=== PATIENT | male | born 1980 | race Caucasian/White ===

== ENCOUNTER 2024-09-28 11:26 | Outpatient (AMB) | payer BC, SELFPAY ==
--- NOTE | 2024-09-28 11:34 | A.OFFPC_ITS ---
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 by: Spouse Allergies midazolam Allergy (Mild, Verified 09/28/24 12:09) Agitated Medication List - Last Reconciled 09/28/24 by Sulma Sargent PA-C buprenorphine-naloxone 8-2 mg 0 film sublingual Tobacco use date assessed: 09/28/24 Dental Screening Dental Screen Date: 09/28/24 Did you have a dental visit in the last 12 months?: No Did you have a dental problem in the last 6 months where you did not have access to dental care?: No HPI Establish Care HPI Details The patient is a 44-year-old male presenting with the need to establish a new primary care provider and management of a right inguinal hernia. The patient has recently moved to a new area and previously received care for various conditions at [facility]. The patient has a history of left inguinal hernia repair and now presents with a right inguinal hernia. This condition was identified after the patient experienced a sharp pain while lifting an object at work. Upon evaluation at [facility], it was noted that the hernia requires surgical intervention. The patient continues to manually manage the hernia's protrusions. Additionally, the patient has a history of pancreatitis and substance use disorder. The substance use disorder involved heroin and cocaine, but the pat ient states they have been in remission for many years and are currently stable. Nicotine dependence is ongoing, but there is no other reported recreational drug use. There is no family history of significant health issues, such as colon, breast, or prostate cancer, and no known family history of diabetes. Discussion about initial colorectal cancer screening through [facility] [employer] was conducted, along with plans for comprehensive blood work to assess the patient's overall health status. 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 - Housing: Recently moved to a new area and currently resides in [place], [place]. - Substance use: History of heroin and c ocaine use, currently in remission. Continues to use nicotine. - Travel: Experiences challenges with lo ng-distance travel for addiction therapy appointments and seeks relocation of services closer to home. - Family status: Accompanied by a partne r referred to as ',' indicating long-term relationship. [facility] Medical History (Updated 09/28/24 @ 12:13 by Sulma Sargent PA-C) Colon cancer screening Overweight with body mass index (BMI) of 26 to 26.9 in adult History of pancreatitis Nicotine dependence Substance abuse in remission Right inguinal hernia Establishing care with new doctor, encounter for Family History Father Heart attack Mother Heart attack Social History Housing: House Alcohol intake: current Alcohol intake frequency: holidays/special occasions only Patient Tobacco Use Status: Current everyday Tobacco user Cigarette Packs Per Day: 1 Cigarettes Per Day: 20 service: No Current occupational status: unemployed Cognitive needs: No Hearing needs: No Vision needs: No Questionnaire PHQ-9 Over the last 2 weeks, how often have you been bothered by any of the following problems? 1. Little interest or pleasure in doing things: not at all 2. Feeling down, depressed, or hopeless: not at all 3. Trouble falling or staying asleep, or sleeping too much: not at all 4. Feeling tired or having little energy: not at all 5. Poor appetite or overeating: not at all 6. Feeling bad about yourself - or that you are a failure or have let yourself or your family down: not at all 7. Trouble concentrating on things, such as reading the newspaper or watching television: not at all 8. Moving or speaking so slowly that other people could have noticed. Or the opposite - being so fidgety or restless that you have been moving around a lot more than usual: not at all 9. Thoughts that you would be better off or of hurting yourself in some way: not at all Total score: 0 Depression Screening Interpretation: Negative Depression Screening Done: Yes 72653 - PHQ-9 Billing: Yes Source: Developed by Drs. Santana Perea, Safia Cruz, Sarmad Caro and colleagues, with an educational jeanmarie from [employer]. Thrive Questionnaire Date Thrive assessed: 09/28/24 I am a: Patient What is your living situation today?: I have a steady place to live Within the past 12 months, did the food you bought not last and you didn't have the money to get more?: Never true Within the past 12 months, did you worry whether your food would run out before you got money to buy more?: Never true Do you have trouble paying for medicines?: No Do you have trouble getting transportation to medical appointments?: No Do you have trouble paying your heating and electricity bill?: No Do you have trouble taking care of your child, family member or friend?: No Do you have trouble with day-to-day activities such as bathing, preparing meals, shopping, managing finances, etc.?: No Are you currently unemployed and looking for a job?: No Are you interested in more education?: No Please select the resources that you would like help with: None THRIVE Score: 0 AUDIT C Alcohol Use Questionnaire (AUDIT-C) 1. How often do you have a drink containing alcohol?: Monthly or less 2. How many drinks containing alcohol do you have on a typical day when you are drinking?: 1 or 2 3. How often do you have six or more drinks on one occasion?: Never Total Score: 1 Score Reviewed/Action Taken: No LISA-7 AMB Questionnaire LISA-7 Date LISA - 7 assessed: 09/28/24 Feeling nervous, anxious, or on edge: 0 = Not at all Not being able to stop or control worryin = Not at all Worrying too much about different things: 0 = Not at all Trouble relaxin = Not at all Being so restless that it is hard to sit still: 0 = Not at all Becoming easily annoyed or irritable: 0 = Not at all Feeling afraid as if something awful might happen: 0 = Not at all Total LISA-7 score (0-4 normal; 5-9 mild; 10-14 moderate; 15-21 severe): 0 Source: Developed by Drs. Santana Perea, Safia Cruz, Sarmad Caro and colleagues, with an educational jeanmarie from [employer]. LISA-7 Assessment Billing LISA-7 Assessment Tool: LISA-7 Assessment 00693 Review of Systems Const Details: - Gastrointestinal: Reports no unintentional weight gain or loss, and no black or bloody stools. - Cardiovascular: Denies chest pain or shortness of breath. - Musculoskeletal: Reports presence of right inguinal hernia, previously left inguinal hernia repair. - Neurological: Denies any recent falls. - Respiratory: Denies recent respiratory issues. - Endocrine: Denies history of diabetes. - General: Denies any new health issues other than those discussed. Physical exam (Primary Care) Vital Signs: Last Vital Signs Temp 98.6 F 09/28/24 11:35 Pulse 72 09/28/24 11:35 Resp 12 09/28/24 11:35 BP 119/74 09/28/24 11:35 Pulse Ox 98 09/28/24 11:35 Oxygen Delivery Method Room Air 09/28/24 11:35 Care Plan Goal for BP management: <140/90 at Goal BMI result Body Mass Index 26.5 BMI Assessment/Plan discussion: High BMI High, discussed plan: lifestyle, weight reduction, dietary, physical activity and alcohol moderation Tobacco/Smoking Status: Tobacco use Status Tobacco use date assessed 09/28/24 09/28/24 11:43 Patient Tobacco Use Status Current everyday Tobacco 09/28/24 11:43 PHQ-9: PHQ-9 Score PHQ-9: Total score 0 09/28/24 11:43 Depression Screening Interpretation: Negative Thrive Assessment: Date of Thrive Assessment Date Thrive assessed 09/28/24 09/28/24 11:43 Const Other: Appearance: Alert. Oriented X3. No acute distress. Head: Normal external exam. Normocephalic. Atraumatic. Eyes: Pupils are equal, round, and reactive to light. Extraocular movements intact. Conjunctiva and sclera normal. Eyelids normal. Ears: External auditory canal normal. Tympanic membranes normal. Right ear has a little more wax than the left; advised to rinse. Throat: Pharynx normal. Uvula midline. Moist mucous membranes. Neck: Normal inspection. Neck supple. Full range of motion. No adenopathy. Thyroid Normal. No meningeal signs. No neck mass noted. Cardiovascular: Normal heart rate and rhythm. Heart sound normal. No murmurs noted. Pulses normal throughout. Respiratory: No respiratory distress. Painless inspiration. Breath sounds normal. No wheezes/rales/rhonchi noted. Chest nontender. No accessory muscle usage noted or decreased air movement noted. Abdomen: Soft and nontender. No distention noted. No organomegaly noted. No visible injury noted. No belly pain when palpated. Patient reports right inguinal hernia. No signs of incarcerated hernia at this time. Back: No costovertebral angle tenderness. Full range of motion noted. Skin: Skin warm and dry. Normal skin color. Normal skin turgor. No rashes/lesions/lacerations noted. Extremities: No lower extremity edema. Extremities exhibit normal range of motion. Extremities nontender. Neuro: Oriented X 3. No motor deficit. No sensory deficit. Reflexes normal. Results Reviewed Results Reviewed: - Labs: Blood work for previous pancreatitis was performed in September or October of the previous year; specifics not detailed. - Screenings: Discussion regarding the initiation of Cologuard for colorectal cancer screening. Coding Level of Care Code New Pt Level 4 (36255) Complex EM visit Add On G2211 Diagnoses Establishing care with new doctor, encounter for Z76.89 Substance abuse in remission F19.11 Nicotine dependence F17.200 Right inguinal hernia K40.90 History of pancreatitis Z87.19 Overweight with body mass index (BMI) of 26 to 26.9 in adult E66.3; Z68.26 Colon cancer screening Z12.11 Additional Codes PHQ-9 - 22962 - PHQ-9 Billing: Yes ([id number]) LISA-7 Assessment Billing - LISA-7 Assessment Tool: LISA-7 Assessment 05456 ([id number]) Assessment & Plan Assessment & Plan (1) Establishing care with new doctor, encounter for: Code(s): Z76.89 - Persons encountering health services in other specified circumstances Category: Medical (2) Substance abuse in remission: Comment: 11 years from heroin, cocaine, pills Code(s): F19.11 - Other psychoactive substance abuse, in remission Category: Medical Plan: The patient is maintained on buprenorphine naloxone, with a focus on relocating treatment closer to his current residence to enhance access and compliance with therapy. Patient instructed to call the [facility] at [place] to establish care at a closer location. Condition is chronic and stable will continue to monitor. (3) Nicotine dependence: Code(s): F17.200 - Nicotine dependence, unspecified, uncomplicated Category: Medical Plan: Patient continues to use nicotine, with future discussions on cessation planned to support health maintenance. Condition is chronic and stable continue to monitor. (4) Right inguinal hernia: Code(s): K40.90 - Unilateral inguinal hernia, without obstruction or gangrene, not specified as recurrent Category: Medical Plan: The patient has a diagnosed right inguinal hernia requiring surgical intervention. The patient is scheduled for a surgical consult. Meanwhile, the patient should avoid heavy lifting and manage protrusion with manual reduction. Condition is chronic and stable will continue to monitor. (5) History of pancreatitis: Code(s): Z87.19 - Personal history of other diseases of the digestive system Category: Medical Plan: Pancreatitis was previously addressed, and follow-up blood work will assess pancreatic function as part of the general health evaluation. (6) Overweight with body mass index (BMI) of 26 to 26.9 in adult: Code(s): E66.3 - Overweight; Z68.26 - Body mass index [BMI] 26.0-26.9, adult Category: Medical Plan: Patient has improved diet and exercise regimen. Condition is chronic and stable continue to monitor. (7) Colon cancer screening: Code(s): Z12.11 - Encounter for screening for malignant neoplasm of colon Category: Medical Plan: Cologuard ordered for colon cancer screening. Patient educated about Cologuard. Plan Plan Patient was informed and verbally consented to the use of an ambient scribe for clinic note documentation during this visit. 1. Inguinal Hernia The patient has a diagnosed right inguinal hernia requiring surgical intervention. The patient is scheduled for a surgical consult. Meanwhile, the patient should avoid heavy lifting and manage protrusion with manual reduction. 2. History Of Pancreatitis Pancreatitis was previously addressed, and follow-up blood work will assess pancreatic function as part of the general health evaluation. 3. History Of Substance Use Disorder, In Remission The patient is maintained on buprenorphine naloxone, with a focus on relocating treatment closer to his current residence to enhance access and compliance with therapy. 4. Nicotine Dependence Patient continues to use nicotine, with future discussions on cessation planned to support health maintenance. In our visit today, we discussed the diagnosis and management of the patient's right inguinal hernia. I explained the necessity of surgical intervention for the hernia, detailing the risks of untreated hernia, and outlined the process of manual reduction as an interim measure. We arranged for the patient to consult with general surgery, with the understanding that a referral would facilitate this process. For his past pancreatitis, we discussed the importance of follow-up blood work, particularly lipase levels, to ensure ongoing pancreatic health. We addressed the patient's history of substance use disorder, confirming his status in remission and maintaining buprenorphine naloxone as therapy. The plan includes supporting the patient's request to transfer this care to a more conveniently located clinic. The risks and benefits of colorectal cancer screening with Cologuard were explained, emphasizing the non-invasive nature and immigration guard-based sample collection to ease compliance. We also reviewed his request for alternative addiction therapy location and will assist in transferring his care to a more convenient location to improve adherence. Orders: Orders Comprehensive [place]. Panel Fast Today Z00.00 - Encounter for general adult medical examination without abnormal findings Magnesium Today Z00.00 - Encounter for general adult medical examination without abnormal findings PSA,Total (Free>4and<10) Today Z00.00 - Encounter for general adult medical examination without abnormal findings XR chest 2V Today K40.90 - Unilateral inguinal hernia, without obstruction or gangrene, not specified as recurrent C Reactive Protein Today Z00.00 - Encounter for general adult medical examination without abnormal findings Complete Blood Count Auto Diff Today Z00.00 - Encounter for general adult m edical examination without abnormal findings Hemoglobin A1c Today Z00.00 - Encounter for general adult medical examination without abnormal findings Lipid Panel Today Z00.00 - Encounter for general adult medical examination without abnormal findings Liver Panel Today Z00.00 - Encounter for general adult medical examination without abnormal findings TSH reflex Free T4 Today Z00.00 - Encounter for general adult medical examination without abnormal findings Vitamin D 25-OH Total Today Z00.00 - Encounter for general adult medical examination without abnormal findings Vitamin B12 and Folate Today Z00.00 - Encounter for general adult medical examination without abnormal findings ECG 12 lead EKG Today K40.90 - Unilateral inguinal hernia, without obstruction or gangrene, not specified as recurrent Lipase Today Z87.19 - Personal history of other diseases of the digestive system Referrals Cologuard Test Z12.11 - Encounter for screening for malignant neoplasm of colon, Z12.12 - Encounter for screening for malignant neoplasm of rectum General Surgery Referral K40.90 - Unilateral inguinal hernia, without obstruction or gangrene, not specified as recurrent Patient Instructions: - Avoid heavy lifting and strain to prevent hernia complications. - Contact your healthcare provider immediately if hernia protrusion becomes irreducible, as urgent care might be needed. - Attend scheduled surgical consultation and consider earlier appointments if possible. - Complete blood tests as ordered to monitor previous pancreatitis and overall health status. - Utilize the Cologuard kit as instructed for colorectal cancer screening. - Contact addiction therapy services to establish care closer to your residence. - Avoid the use of cotton swabs for ear cleaning; use peroxide occasionally if needed. - Follow fasting instructions for blood work, ensuring nothing to eat or drink for 10 to 12 hours prior. - Maintain these instructions and report any new or worsening symptoms promptly. - A follow-up appointment in three months is advised to reassess and continue management, which you should schedule with our office.
[2024-09-28 11:35] VITALS: BP 119/74; PULSE 72; RESP 12; TEMP 37; O2SAT 98; BMI 26.5
== END 2024-09-28 12:10 | disposition home or self-care (01) ==
LOC: HO.HMCSH 11:26
PROVIDERS: PCP Internal Medicine; Visit Provider Physician Assistant Medical
DX: Z76.89 Persons encountering health services in other specified circumstances (principal); F19.11 Other psychoactive substance abuse, in remission; F17.200 Nicotine dependence, unspecified, uncomplicated; K40.90 Unilateral inguinal hernia, without obstruction or gangrene, not specified as recurrent; Z87.19 Personal history of other diseases of the digestive system; E66.3 Overweight; Z68.26 Body mass index [BMI] 26.0-26.9, adult; Z12.11 Encounter for screening for malignant neoplasm of colon

== ENCOUNTER → 2024-09-28 11:26 | Outpatient (BNVA) | payer BC, SELFPAY | PROVIDERS: PCP Internal Medicine; Visit Provider Physician Assistant Medical | DX: F19.11 Other psychoactive substance abuse, in remission (principal); K40.90 Unilateral inguinal hernia, without obstruction or gangrene, not specified as recurrent; E66.3 Overweight; Z68.26 Body mass index [BMI] 26.0-26.9, adult; Z78.9 Other specified health status; Z87.19 Personal history of other diseases of the digestive system; F17.200 Nicotine dependence, unspecified, uncomplicated; Z71.3 Dietary counseling and surveillance; Z71.6 Tobacco abuse counseling | CPT/HCPCS: 96127 ==

== ENCOUNTER 2024-10-25 13:06 | Outpatient (AMB) | payer BC, SELFPAY ==
--- NOTE | 2024-10-25 13:57 | A.OFFVISCC_ITS ---
Vital Signs 10/25/24 13:58 BP 140/76 H Blood Pressure Location Lt brachial Position Sitting Pulse 77 Pulse Source Pulse Oximeter Pulse Oximetry (%) 99 Oxygen Delivery Method Room Air Intake Visit Reasons: MAT Intake Allergies midazolam Allergy (Mild, Verified 09/28/24 12:09) Agitated Medication List - Last Reconciled 10/25/24 by ROB ArguetaC buprenorphine-naloxone 8-2 mg 0 film sublingual buprenorphine-naloxone 8-2 mg 1 film sublingual BID HPI Comments Details: The patient is a 44-year-old male recently moved to the area and presenting for follow-up in his ongoing management of opioid use disorder. He reports being clean and sober for 10 years, maintaining adherence to Suboxone 8 mg twice daily with no noted complications or ineffectiveness. Alcohol use is acknowledged as occasional, defined by the patient as a few times a week specifically consuming just beer with an explicit disclaimer of no hard liquor. Nicotine dependence is significant, with reported smoking of about a pack a day, and while the patient expresses no current interest in cessation, he acknowledges future consideration. The conversation highlighted familial and social dynamics, particularly with reference to his son in relation to smoking cessation. The patient denies any present or previous psychiatric diagnoses outside of substance use but confirms stability with no explicit mood or anxiety complaints. He acknowledges an allergy to midazolam (Versed) but denies current or past adverse mental health impacts linked to stressors or usage. Review of Systems Const All systems reviewed & are unremarkable except as noted in HPI and below Psych Details: - Psychiatric: Denies any current mental health concerns. - Substance Use: Reports occasional alcohol use (beer, a few times a week), reports smoking approximately one pack of cigarettes daily. The patient denies suicidal ideation, homicidal ideation, self-injury, or experiences of domestic violence during this visit. Risk assessment for these conditions reveals no immediate safety concerns. Reports as per HPI Physical Exam Vital Signs: Last Vital Signs Pulse 77 10/25/24 13:58 BP 140/76 H 10/25/24 13:58 Pulse Ox 99 10/25/24 13:58 Oxygen Delivery Method Room Air 10/25/24 13:58 Const General: cooperative Nutritional Appearance: average body habitus Orientation/consciousness: patient oriented x3 Limitations: no limitations HEENT Head: Yes normal to inspection Eyes General: appearance normal, both eyes and all related structures Periorbital: periorbital findings normal Eyelids: Yes eyelids normal Conjunctivae: conjunctivae normal Sclerae: sclerae normal Neck Neck: Yes normal visual inspection Resp Effort & Inspection: normal respiratory effort Skin General skin exam: no rashes or lesions noted Neuro General: patient oriented x3 Gait exam (Neuro): Normal gait present Extrem General: Yes normal to inspection Psych Appearance: well kempt Mental Status: mental status grossly normal Speech and movement: Normal speech and movement present Affect: normal affect Attitude: cooperative Thought process: Normal thought process present Thought content: Normal thought content present Insight: Good insight present (Psych) Judgement: Good judgement present (Psych) Results AMB 14 Panel Urine Drug Screen Urine Marijuana (THC) Negative Last Edit by Madison Mcmillan RN on 10/25/24 14: 21 Urine Cocaine Negative Last Edit by Madison Mcmillan RN on 10/25/24 14:21 Urine Morphine Negative Last Edit by Madison Mcmillan RN on 10/25/24 14:21 Urine Methamphetamine Negative Last Edit by Madison Mcmillan RN on 10/25/24 14: 21 Urine Amphetamine Negative Last Edit by Madison Mcmillan RN on 10/25/24 14:21 Urine Benzodiazepine Negative Last Edit by Madison Mcmillan RN on 10/25/24 14:2 1 Urine Barbiturates Negative Last Edit by Madison Mcmillan RN on 10/25/24 14:21 Urine Methadone Negative Last Edit by Madison Mcmillan RN on 10/25/24 14:21 Urine Buprenorphine Positive Last Edit by Madison Mcmillan RN on 10/25/24 14:21 Urine Tricyclic Antidepressant Negative Last Edit by Madison Mcmillan RN on 10/25/24 14:21 Urine MDMA Negative Last Edit by Madison Mcmillan RN on 10/25/24 14:21 Urine Oxycodone Negative Last Edit by Madison Mcmillan RN on 10/25/24 14:21 Urine Phencyclidine Negative Last Edit by Madison Mcmillan RN on 10/25/24 14:21 Urine Propoxyphene Negative Last Edit by Madison Mcmillan RN on 10/25/24 14:21 [facility] Medical History (Updated 10/25/24 @ 14:39 by YASIR Argueta) Colon cancer screening Overweight with body mass index (BMI) of 26 to 26.9 in adult History of pancreatitis Nicotine dependence Substance abuse in remission Right inguinal hernia Establishing care with new doctor, encounter for Family History Father Heart attack Mother Heart attack Social History Housing: House Alcohol intake: current Alcohol intake frequency: holidays/special occasions only Patient Tobacco Use Status: Current everyday Tobacco user Cigarette Packs Per Day: 1 Cigarettes Per Day: 20 service: No Current occupational status: unemployed Cognitive needs: No Hearing needs: No Vision needs: No Assessment & Plan Assessment & Plan (1) Substance abuse in remission: Comment: 11 years from heroin, cocaine, pills Code(s): F19.11 - Other psychoactive substance abuse, in remission Category: Medical (2) Nicotine dependence: Code(s): F17.200 - Nicotine dependence, unspecified, uncomplicated Category: Medical Qualifiers: Nicotine product type: cigarettes Qualified Code(s): F17.210 - Nicotine dependence, cigarettes, uncomplicated Plan Encourage moderation in alcohol consumption, with current levels deemed as manageable and maintained with no alteration despite recent consumption reports. Document and acknowledge nicotine use at a pack per day; suggest initiation of gradual cigarettes reduction as a target for future cease over recorded visits. Continue buprenorphine-naloxone 8-2 mg b.i.d. as current therapy reflects success with planned refills for the next two weeks. Regular follow-ups set to ensure ongoing management efficacy. Orders: Orders AMB 14 Panel Urine Drug Screen Today F19.11 - Other psychoactive substance abuse, in remission Medications: New buprenorphine-naloxone 8-2 mg 1 film sublingual twice per day. 1 film sublingual BID 14 ea 0RF Patient Instructions: - Continue taking buprenorphine-naloxone 8-2 mg twice daily as prescribed. - Monitor alcohol intake for moderation; report any increase in use at follow- up. - Consider reducing cigarette consumption gradually; discuss smoking cessation at future visits. - Follow up in 2 weeks for reassessment and continuation of treatment. - Report any new medication allergies or adverse reactions promptly. Scribe Plan - Not visible on output: Patient was informed and verbally consented to the use of an ambient scribe for clinical note documentation during this visit. MAT Intake Nursing Intake Reason for visit: MAT intake Transfer of Care Are you currently using?: No When was your last use?: July 2014 What is your source of income?: currently unemployed What is your current relationship status?: engaged Current PCP: Sluma Sargent PA-C Date of last visit: 09/28/2024 Referral Source: PCP Details: Transfer from [facility] Substance Abuse History Substance Abuse History (includes route, frequency and quantity): Heroin, Fentanyl, Buprenorphine/naloxone, Oxycodone product, Cocaine, Other opioids, Alcohol (Current use- a couple of beers a couple of times per week), Amphetamines, Marijuana, Tobacco (Currently 1PPD smoker-risk reduction education provided by provider) and Other Age of first use: 10-13 Details: Alcohol and tobacco currently used. Other substances listed are more than 10 years ago Social History Domestic Violence concerns: no Children: 1 Do you have a support system?: yes, family Current mode of transportation?: vehicle Where are you currently residing?: House- [address] [place] Drug Use Have you ever shared needles?: No Have you ever belonged to a needle exchange program?: No Do you buy needles at a pharmacy?: No Have you ever overdosed?: No Number of lifetime overdoses: 0 Have you ever been hospitalized for an overdose?: No Was Naloxone administered?: Not applicable Recovery History Have you had any periods of recovery?: Yes What is your longest time in recovery?: 10 years current recovery time When was the last time you were in recovery?: current Have you ever had inpatient treatment for your substance abuse disorder?: Yes Have you been in an inpatient Rehab/[place] house?: Yes Have you been in an outpatient Methadone Maintenance program?: No Have you been in an outpatient Suboxone Maintenance program?: Yes Have you been in an AA/NA support program?: Yes Have you had a Recovery Support Human Resources Trainee?: No Have you had Peer Support?: No Details: Utilized NA/AA at times in past, not current. 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 If so, who?: no BH diagnosis: none History of other addictive behavior: none History of inpatient psychiatric hospitalization? If so, how many? Most Recent? Where?: no History of self harming thoughts?: No History of homicidal or suicidal intentions?: No Medical Conditions Endocarditis?: No Skin Infection: No Seizure related to withdrawal or overdose: No Head or brain injury: No Hepatitis A (if yes, have you been treated?): No Hepatitis B (if yes, have you been treated?): No Hepatitis C (if yes, have you been treated?): No HIV (if yes, have you been treated?): No (Has been tested in the past for Hepatitis and HIV- negative) TB (if yes, have you been treated?): No Other: Yes (Surgical history of left inguinal hernia repair. Awaiting surgery for current right inguinal hernia) Do you have any chronic pain conditions?: No Legal History History of incarceration: Yes Currently on parole or probation: No Court mandated programs: No Pending court cases: Yes DCF involvement: No
[2024-10-25 13:58] VITALS: BP 140/76; PULSE 77; O2SAT 99
== END 2024-10-25 14:06 | disposition home or self-care (01) ==
LOC: HO.HCC 13:06
PROVIDERS: PCP Physician Assistant Medical; Visit Provider Clinical Nurse Specialist Psychiatric/Mental Health
DX: F19.11 Other psychoactive substance abuse, in remission (principal); F17.210 Nicotine dependence, cigarettes, uncomplicated
CPT/HCPCS: 99203

== ENCOUNTER → 2024-10-25 13:06 | Outpatient (BNVA) | payer BC, SELFPAY | PROVIDERS: PCP Physician Assistant Medical; Visit Provider Clinical Nurse Specialist Psychiatric/Mental Health | DX: F19.11 Other psychoactive substance abuse, in remission (principal) | CPT/HCPCS: 80307 ==

== ENCOUNTER 2024-11-07 13:21 | Outpatient (AMB) | payer BC, SELFPAY ==
--- NOTE | 2024-11-07 13:25 | A.OFFVIS_ITS ---
Vital Signs 11/07/24 13:26 Weight 157 lb BP 120/80 Pulse 74 Pulse Oximetry (%) 96 Intake Visit Reasons: MAT Allergies midazolam Allergy (Mild, Verified 11/07/24 13:27) Agitated Medication List - Last Reconciled 11/07/24 by Lola Wilkerson NP-C buprenorphine-naloxone 8-2 mg 1 film sublingual BID HPI Comments Details: The patient is a 44-year-old male who presents for a follow-up visit for substance use disorder, reports doing well and stable on buprenorphine-naloxone 8-2 mg, twice per day. Denies opiate use including other substances, reports drinking 1-2 beers on occasion and continues with smoking cigarettes, although notes decreasing frequency. [facility] Medical History Colon cancer screening Overweight with body mass index (BMI) of 26 to 26.9 in adult History of pancreatitis Nicotine dependence Substance abuse in remission Right inguinal hernia Establishing care with new doctor, encounter for Family History Father Heart attack Mother Heart attack Social History Housing: House Alcohol intake: current Alcohol intake frequency: holidays/special occasions only Patient Tobacco Use Status: Current everyday Tobacco user Cigarette Packs Per Day: 1 Cigarettes Per Day: 20 service: No Current occupational status: unemployed Cognitive needs: No Hearing needs: No Vision needs: No Review of Systems Const All systems reviewed & are unremarkable except as noted in HPI and below Physical Exam Vital Signs: Last Vital Signs Pulse 74 11/07/24 13:26 BP 120/80 11/07/24 13:26 Pulse Ox 96 11/07/24 13:26 Const General: cooperative Psych Appearance: well kempt Mental Status: mental status grossly normal Speech and movement: Normal speech and movement present Affect: normal affect Attitude: cooperative Thought process: Normal thought process present Thought content: Normal thought content present Insight: Good insight present (Psych) Judgement: Good judgement present (Psych) Assessment & Plan Assessment & Plan (1) Substance abuse in remission: Comment: 11 years from heroin, cocaine, pills Code(s): F19.11 - Other psychoactive substance abuse, in remission Category: Medical Plan The plan of care is continue with buprenorphine-naloxone 8-2 mg, twice per day. Patient is to continue working on decreasing frequency of cigarette use. Medications: Changed From buprenorphine-naloxone 8-2 mg 1 film sublingual twice per day. 1 film sublingual BID 14 ea 0RF To buprenorphine-naloxone 8-2 mg 1 film sublingual twice per day. 1 film sublingual BID 60 ea 0RF 30 days Patient Instructions: - Continue with buprenorphine-naloxone 8-2 mg, twice per day. - Continue working on decreasing frequency of cigarette use. - Follow up in one month, or sooner, if needed. - Call with questions, concerns, or to report side effects. - The patient verbalized understanding and agreed with plan of care. Coding Level of Care Code Est Pt Level 3 (03515) Diagnoses Substance abuse in remission F19.11
[2024-11-07 13:26] VITALS: BP 120/80; PULSE 74; O2SAT 96
== END 2024-11-07 13:34 | disposition home or self-care (01) ==
LOC: HO.HCC 13:21
PROVIDERS: PCP Physician Assistant Medical; Visit Provider Clinical Nurse Specialist Psychiatric/Mental Health
DX: F19.11 Other psychoactive substance abuse, in remission (principal)
CPT/HCPCS: 99213

== ENCOUNTER 2024-11-14 09:22 | Outpatient (AMB) | payer BC, SELFPAY ==
--- NOTE | 2024-11-14 09:23 | MHC.OFFVIS ---
Vital Signs 11/14/24 09:30 Height 5 ft 4 in Weight 152 lb BMI 26.1 BP 127/86 Blood Pressure Location Rt brachial Position Sitting Pulse 75 Intake Visit Reasons: Hernia Intake Note: Patient referred by [facility] for evaluation and treatment of Rt inguinal hernia. Present since August 2024. Patient c/o: right groin pain that spreads to testicle. 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 He has noticed this mass since Aug, 2024. He says that this does not reduce. He says that he has discomfort area. He says he has been unable to work because of this. He has a history of substance abuse which is in remission and he is on buprenorphine. He says that he has been sober for more than 10 years with regards to substance abuse. 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 [facility] Medical History (Updated 11/14/24 @ 16:27 by Aydin Jean MD) Irreducible right inguinal hernia Colon cancer screening Overweight with body mass index (BMI) of 26 to 26.9 in adult History of pancreatitis Nicotine dependence Substance abuse in remission Right inguinal hernia Establishing care with new doctor, encounter for Surgical History (Updated 11/14/24 @ 09:29 by YOUSIF Asencio) Hx of left inguinal hernia repair Family History Father Heart attack Mother Heart attack Social History Housing: House Alcohol intake: current Alcohol intake frequency: holidays/special occasions only Patient Tobacco Use Status: Current everyday Tobacco user Cigarette Packs Per Day: 1 Cigarettes Per Day: 20 service: No Current occupational status: unemployed Cognitive needs: No Hearing needs: No Vision needs: No Review of Systems Const Denies chills and Denies fever(s) Card Denies chest pain, Denies dyspnea and Denies dyspnea on exertion Resp Denies cough, Denies dyspnea and Denies dyspnea on exertion GI Denies hematochezia and Denies change in bowel habits Denies hematuria and Denies difficulty urinating Musc Denies back pain and Denies limited range of motion Neuro Denies focal weakness and Denies convulsions Psych Denies depression and Denies mood swings Physical Exam Vital Signs: Last Vital Signs Pulse 75 11/14/24 09:30 BP 127/86 11/14/24 09:30 BMI result Body Mass Index 26.1 Const General: comfortable and no acute distress Orientation/consciousness: patient oriented x3 Neck Neck: Yes no lymphadenopathy Resp Auscultation: clear to auscultation bilaterally Cardio Rhythm: regular rhythm GI Other: Large right inguinal hernia, not reducible, mildly tender Palpation (GI): Soft to palpation, nontender and no guarding Neuro General: patient oriented x3 Assessment & Plan Assessment & Plan (1) Irreducible right inguinal hernia: Code(s): K40.30 - Unilateral inguinal hernia, with obstruction, without gangrene, not specified as recurrent Category: Medical Plan He has this chronically incarcerated right inguinal hernia discomfort. I explained to him the technique of repair of the right hernia with mesh. I reviewed the risks including but not limited to bleeding, infections, injury to other organs, recurrence, postop pain, as well as the benefits and alternatives. He understands what to expect postoperatively He is on buprenorphine so he understands as well that postop pain control may be challenging for him. Coding Level of Care Code New Pt Level 3 (95526) Diagnoses Irreducible right inguinal hernia K40.30
[2024-11-14 09:30] VITALS: BP 127/86; PULSE 75; BMI 26.1
== END 2024-11-14 09:48 | disposition home or self-care (01) ==
LOC: HO.HGS 09:22
PROVIDERS: Visit Provider Surgery
DX: K40.30 Unilateral inguinal hernia, with obstruction, without gangrene, not specified as recurrent (principal)
CPT/HCPCS: 99203

== ENCOUNTER 2024-11-26 12:10 | Outpatient (REF) | payer BC, SELFPAY ==
[2024-11-26 13:36] LABS: MANUAL DIFF FLAG NO
[2024-11-26 13:45] LABS: Hematocrit 39.7 % (42.0-52.0); Hemoglobin 14.0 g/dl (14.0-18.0); Imm Gran Abs Auto 0.03 X10*3/uL (0.00-0.03); Imm Gran Pct Auto 0.4 % (0.0-0.4); Lymphocytes Absolute Auto 3.1 X10*3/uL (1.2-4.9); Mean Corpuscular HGB Conc 35.3 g/dl (31.0-36.0); Mean Corpuscular Hemoglobin 31.6 pg (27.0-33.0); Mean Corpuscular Volume 89.6 fL (80.0-98.0); NRBC Abs Auto 0.000 X10*3/uL (0.0-0.012); NRBC Pct Auto 0.0 /100WBC (0.0-0.2); Platelet Count 293 X10*3/uL (160-400); Red Blood Count 4.43 X10*6/uL (4.60-5.80); White Blood Count 7.3 X10*3/uL (4.8-10.8)
[2024-11-26 14:25] LABS: Hemoglobin A1C 121.0840 umol/L; Total Hemoglobin (HGBA1C) 3805.9051 umol/L
[2024-11-26 14:39] LABS: PSA,Total (Free>4and<10) 0.59 ng/mL (0.00-4.00)
[2024-11-26 14:43] LABS: Alanine Aminotransferase 87 U/L (0-40); Albumin Level 4.0 g/dL (3.5-5.0); Alkaline Phosphatase 183 U/L (39-117); Anion Gap 16 (12-20); Aspartate Amino Transferase 96 U/L (5-37); Blood Urea Nitrogen 9 mg/dL (9-16); Calcium 9.0 mg/dL (8.4-10.2); Carbon Dioxide 23 mmol/L (22-29); Chloride 102 mmol/L (96-108); Cholesterol 339 mg/dL (<200); Estimated Glomerular Filt Rate > 60; HDL Cholesterol 26 mg/dL (>40); Lipase 18 U/L (8-78); Magnesium 2.2 mg/dL (1.6-2.6); Potassium 3.8 mmol/L (3.3-5.1); Sodium 137 mmol/L (135-145); Total Protein 7.4 g/dL (6.5-8.0)
[2024-11-26 14:55] LABS: Folate 12.2 ng/mL (> or = 4.0); Vitamin B12 689 pg/mL (200-900)
[2024-11-26 14:56] LABS: Triglycerides 1661 mg/dL (<150)
== END 2024-11-26 12:11 | disposition home or self-care (01) ==
LOC: HO.HMGCLDS 12:10
PROVIDERS: PCP Physician Assistant Medical; Visit Provider Physician Assistant Medical
DX: Z00.00 Encounter for general adult medical examination without abnormal findings (principal); Z12.5 Encounter for screening for malignant neoplasm of prostate; Z87.19 Personal history of other diseases of the digestive system; Z13.29 Encounter for screening for other suspected endocrine disorder; Z13.6 Encounter for screening for cardiovascular disorders; Z13.1 Encounter for screening for diabetes mellitus
CPT/HCPCS: 36415; 80053; 80061; 80076; 82248; 82306; 82607; 82746; 83036; 83690; 83735; 84153; 84443; 85025; 86140

== ENCOUNTER 2024-12-10 15:10 | Outpatient (AMB) | payer BC, SELFPAY ==
[2024-12-10 15:17] VITALS: BP 110/68; PULSE 80; O2SAT 98; BMI 27.1
--- NOTE | 2024-12-10 15:17 | MHC.OFFVIS ---
Vital Signs 12/10/24 15:17 Height 5 ft 4 in Weight 158 lb BMI 27.1 BP 110/68 Pulse 80 Pulse Oximetry (%) 98 Intake Visit Reasons: MAT Allergies midazolam Allergy (Mild, Verified 12/10/24 15:18) Agitated HPI HPI MAT: Details: He feels well on current dosing [facility] Medical History (Updated 12/10/24 @ 16:47 by Fozia Snyder MD) Opioid use disorder Anemia Elevated alkaline phosphatase level Elevated ALT measurement Elevated AST (SGOT) Total bilirubin, elevated Low HDL (under 40) Pure hypercholesterolemia, unspecified Hypertriglyceridemia Irreducible right inguinal hernia Colon cancer screening Overweight with body mass index (BMI) of 26 to 26.9 in adult History of pancreatitis Nicotine dependence Substance abuse in remission Right inguinal hernia Establishing care with new doctor, encounter for Surgical History Hx of left inguinal hernia repair Family History Father Heart attack Mother Heart attack Social History Housing: House Alcohol intake: current Alcohol intake frequency: holidays/special occasions only Patient Tobacco Use Status: Current everyday Tobacco user Cigarette Packs Per Day: 1 Cigarettes Per Day: 20 service: No Current occupational status: unemployed Cognitive needs: No Hearing needs: No Vision needs: No Review of Systems Const All systems reviewed & are unremarkable except as noted in HPI and below Physical Exam Vital Signs: Last Vital Signs Pulse 80 12/10/24 15:17 BP 110/68 12/10/24 15:17 Pulse Ox 98 12/10/24 15:17 BMI result Body Mass Index 27.1 Const General: cooperative Assessment & Plan Assessment & Plan (1) Opioid use disorder: Code(s): F11.90 - Opioid use, unspecified, uncomplicated Category: Medical Plan Continue current medication See as scheduled. Medications: New buprenorphine-naloxone 8-2 mg (Suboxone) 1 film sublingual BID 60 ea 0RF 30 days Coding Level of Care Code Est Pt Level 3 (66278) Diagnoses Opioid use disorder F11.90
== END 2024-12-10 15:34 | disposition home or self-care (01) ==
LOC: HO.HCC 15:11
PROVIDERS: PCP Physician Assistant Medical; Visit Provider Internal Medicine
DX: F11.90 Opioid use, unspecified, uncomplicated (principal)
CPT/HCPCS: 99213

== ENCOUNTER 2024-12-25 10:57 | Day surgery (SDC) | payer OTHER, SELFPAY ==
[2024-12-20 12:05] VITALS: BMI 26.1
--- NOTE | 2024-12-21 09:38 | P.CONAN_ITS ---
Documented by User: Meggan Montgomery NP 12/21/24 13:30 HPI - Anesthesia Eval Consult details Narrative: 44yo M for Right Incarcerated Repair Hernia Inguinal Reducible with mesh Suboxone 8mg BID - in remission of OUD for 11 years 11/26/24 labs with PCP show elevated liver enzymes and triglycerides >1600. PCP rx'd fenofibrate and high dose omega, but pt has not started. States he ate hot dogs prior to lab draw. Case reviewed with LM - discussed with surgery - aware propofol contraindicated PMFSH Active Problems Active Problems: All Active Problems Opioid use disorder (Acute) Anemia (Acute) Elevated alkaline phosphatase level (Acute) Elevated ALT measurement (Acute) Elevated AST (SGOT) (Acute) Total bilirubin, elevated (Acute) Low HDL (under 40) (Acute) Pure hypercholesterolemia, unspecified (Acute) Hypertriglyceridemia (Acute) Irreducible right inguinal hernia (Acute) Colon cancer screening (Acute) Overweight with body mass index (BMI) of 26 to 26.9 in adult (Acute) History of pancreatitis (Acute) Nicotine dependence (Acute) Substance abuse in remission (Acute) Right inguinal hernia (Acute) Establishing care with new doctor, encounter for (Acute) Past Medical History Medical History Opioid use disorder Anemia Elevated alkaline phosphatase level Elevated ALT measurement Elevated AST (SGOT) Total bilirubin, elevated Low HDL (under 40) Pure hypercholesterolemia, unspecified Hypertriglyceridemia Irreducible right inguinal hernia Colon cancer screening Overweight with body mass index (BMI) of 26 to 26.9 in adult History of pancreatitis Nicotine dependence Substance abuse in remission Right inguinal hernia Establishing care with new doctor, encounter for Family History Family History Father Heart attack Mother Heart attack Surgical History Surgical History Hx of left inguinal hernia repair Social History Social History Housing: House Alcohol intake: current Alcohol intake frequency: holidays/special occasions only Patient Tobacco Use Status: Current everyday Tobacco user Tobacco use type: Cigarette Cigarette Packs Per Day: 1 Cigarettes Per Day: 20.0 Use of substances other than those prescribed or required for medical reasons: No Are you DNR?: No Advance Directives: No Advance Directives Information Provided: Yes Poor oral hygiene: No service: No Current occupational status: unemployed Cognitive needs: No Hearing needs: No Vision needs: No Meds Allergies Allergy/AdvReac Type Severity Reaction Status Date / Time midazolam Allergy Mild Agitated Verified 12/10/24 15:18 Exam Height,Weight and Vital Signs: Height 5 ft 4 in Weight 68.946 kg Pertinent Lab Results Pertinent Lab Results: Laboratory Tests 11/26/24 12:14 WBC 7.3 Hgb 14.0 Hct 39.7 L Plt Count 293 Sodium 137 Potassium 3.8 Chloride 102 Carbon Dioxide 23 BUN 9 Creatinine 0.69 Laboratory Tests 11/26/24 12:14 Hemoglobin A1c % 5.1 Calcium 9.0 Magnesium 2.2 Total Bilirubin 1.3 H Direct Bilirubin 0.2 AST 96 H ALT 87 H Alkaline Phosphatase 183 H C-Reactive Protein 0.12 Total Protein 7.4 Albumin 4.0 Triglycerides 1661 H Cholesterol 339 H HDL Cholesterol 26 L Lipase 18 Assessment and Plan Assessment Anesthesia Assessment: Chart Reviewed Documented by User: Acosta Snyder MD 12/25/24 12:42 [facility] Past Medical History Medical History Opioid use disorder Anemia Elevated alkaline phosphatase level Elevated ALT measurement Elevated AST (SGOT) Total bilirubin, elevated Low HDL (under 40) Pure hypercholesterolemia, unspecified Hypertriglyceridemia Irreducible right inguinal hernia Colon cancer screening Overweight with body mass index (BMI) of 26 to 26.9 in adult History of pancreatitis Nicotine dependence Substance abuse in remission Right inguinal hernia Establishing care with new doctor, encounter for Cognitive capacity: normal Family History Family History Father Heart attack Mother Heart attack Family history of problems with anesthesia: No Surgical History Surgical History Hx of left inguinal hernia repair History of Problems with Anesthesia: No Social History Social History Housing: House Alcohol intake: current Alcohol intake frequency: holidays/special occasions only Patient Tobacco Use Status: Current everyday Tobacco user Tobacco use type: Cigarette Cigarette Packs Per Day: 1 Cigarettes Per Day: 20.0 Use of substances other than those prescribed or required for medical reasons: No Are you DNR?: No Advance Directives: No Advance Directives Information Provided: Yes Poor oral hygiene: No service: No Current occupational status: unemployed Cognitive needs: No Hearing needs: No Vision needs: No Meds Allergies Allergy/AdvReac Type Severity Reaction Status Date / Time midazolam Allergy Mild Agitated Verified 12/10/24 15:18 Exam Exam Date and Time: 12/25/2024 Airway TM Dist: >3cm Neck ROM: Full Heart: rrr 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
[2024-12-25 11:04] VITALS: BMI 26.1
[2024-12-25 11:15] VITALS: BP 126/89; PULSE 92; RESP 16; TEMP 36.9; O2SAT 97
[2024-12-25] MEDS: Lactated Ringers 1,000 ML 100 ML IVCONT (11:30)
[2024-12-25 11:54] LABS: Triglycerides 997 mg/dL (<150)
--- NOTE | 2024-12-25 12:23 | MHC.SHP ---
Pre-Procedural Eval Section A - 24 Hr Update-Section A only Date of Service: 12/25/24 Section B - Complete if H&P > 30 days Chief Complaint: Unilateral inguinal hernia, with obstruction, Details of Present Illness: Reducible right inguinal hernia, for hernia repair Relevant Social History: Other (specify) (History of substance abuse, on buprenorphine) Present Medications: see Short Stay Collaborative assessment Medical History: Significant History (History of substance abuse, hypertriglyceridemia, smoker) Allergies: Allergies Allergy/AdvReac Type Severity Reaction Status Date / Time midazolam Allergy Mild Agitated Verified 12/10/24 15:18 Review of Systems Sugical H&P ROS: Negative: Constitution, Cardiovascular and Respiratory Exam Surgical H&P Exam: Normal: Heart, Normal: Lungs and Normal: Extremities and Significant Findings: Abdomen (Right inguinal hernia, reducible) Plan Diagnosis/Plan: Unchanged I have reviewed the history and physical and performed a pertinent physical examination on my patient. No changes have occurred unless specified. Time Spent With Patient Time: Total time managing care of this patient today ____ minutes.
--- NOTE | 2024-12-25 13:57 | P.OP_ITS ---
Operative Note Operative Note Date of Service: 12/25/24 Narrative: Preop diagnosis: Right inguinal hernia, chronically incarcerated Postop diagnosis: Right inguinal hernia, chronically incarcerated, indirect Procedure: Repair of right inguinal hernia with mesh Surgeon: Aydin Jean MD seismic survey assistant: MIKEY Patton The patient is a 44-year-old male with a large right inguinal hernia. In view of symptoms, he wanted to proceed with the repair. He understood the technique of repair with mesh. He was aware of the risks, benefits, and alternatives He was brought to the operating room. He was placed supine under general anesthesia via endotracheal tube. The right groin was prepped and draped in the usual sterile fashion. A surgical time-out was done. The patient received cefazolin 2 g IV preoperatively. I infiltrated the planned line of incision with lidocaine 1%. I made a short incision in the skin along an imaginary line from the anterior superior iliac spine to the pubic ramus with a blade 15. This was carried down through the full-thickness of the skin and thick subcutaneous fat until was able to visualize the external oblique aponeurosis. I bluntly dissected the aponeurosis to define the external ring. I opened up the aponeurosis by making a short incision and then extending this inferomedially to connect with the external ring. The inguinal canal was therefore entered. I applied hemostasis on the divided edges of the aponeurosis. I bluntly dissected the underside of the aponeurosis to create space for the mesh The large hernia was seen along with the spermatic cord. I bluntly dissected this until was able to pass a Chastity drain around this. The [place] drain was used for retraction. I carefully dissect the sac off of the rest of the cord contents with gentle blunt dissection. I was able to visualize the vas deferens and the accompanying vessels and these were protected during the dissection. There was note of a very large sac with fat. He was markedly adherent to the rest of the cord contents so I had to do careful dissection until was able to completely reduce this through the internal ring. The internal ring was reinforced with a large size Prolene plug. The plug was secured with Prolene 2 sutures to the shelving edge of the inguinal meant laterally the internal oblique superiorly and medially using the inner leaves of the plug I then reinforced the entire floor of the canal with a keyhole mesh. The tails of the mesh were passed around the cord at the level of the internal ring and were secured together with Prolene 2 sutures. I flattened the mesh. I secured the mesh to the pubic ramus inferomedially, the internal oblique medially and superiorly, as well as the shelving edge of the external oblique laterally using Prolene 2 sutures I removed the a [place] drain. I irrigated. Once hemostasis was confirmed, I proceeded to then close the external oblique aponeurosis with a running Polysorb 2-0 stitch to re-create the external ring The thick subcutaneous layer was reapposed with Polysorb 3-0 simple interrupted sutures. The skin incision was closed with a running Polysorb 4-0 subcuticular stitch. The area was infiltrated with Marcaine 0.5% for postop analgesia. Dressings were applied. The procedure was completed The patient tolerated the procedure well. There were no immediate complications. Initial and final counts of sponges and instruments were correct. Estimated blood loss was about 20 cc. The patient was extubated without difficulty and transferred to the recovery room with stable vital signs.
[2024-12-25 14:10] VITALS: BP 145/89; PULSE 88; RESP 16; TEMP 36.1; O2SAT 100
[2024-12-25 14:30] VITALS: BP 138/95; PULSE 66; RESP 16; O2SAT 100
[2024-12-25 14:35] VITALS: BP 137/90; PULSE 63; RESP 16; O2SAT 100
[2024-12-25 14:55] VITALS: BP 140/94; PULSE 65; RESP 16; TEMP 36.2; O2SAT 97
[2024-12-25 15:10] VITALS: BP 140/94; PULSE 66; RESP 16; TEMP 36.2; O2SAT 97
== END 2024-12-25 15:40 | disposition home or self-care (01) ==
PROVIDERS: Nurse Practitioner; PCP Physician Assistant Medical; Visit Provider Surgery
PROC: (CPT 49507; principal; 2024-12-25 13:10)
DX: K40.30 Unilateral inguinal hernia, with obstruction, without gangrene, not specified as recurrent (principal); E66.3 Overweight; Z68.26 Body mass index [BMI] 26.0-26.9, adult; F14.11 Cocaine abuse, in remission; F11.11 Opioid abuse, in remission; Z79.891 Long term (current) use of opiate analgesic; Z88.8 Allergy status to other drugs, medicaments and biological substances; Z98.890 Other specified postprocedural states; F17.210 Nicotine dependence, cigarettes, uncomplicated; Z56.0 Unemployment, unspecified
CPT/HCPCS: 49507; 36415; 84478; C1781; J0131; J0330; J0690; J1100; J1171; J1885; J2003; J2405; J2704; J2795; J3010

== ENCOUNTER → 2024-12-25 10:57 | Outpatient (BNV) | payer OTHER, SELFPAY | PROVIDERS: PCP Physician Assistant Medical; Visit Provider Surgery | DX: K40.30 Unilateral inguinal hernia, with obstruction, without gangrene, not specified as recurrent (principal) | CPT/HCPCS: 49507 ==

== ENCOUNTER 2025-01-07 09:52 | Outpatient (AMB) | payer BC, SELFPAY ==
--- NOTE | 2025-01-07 09:53 | MHC.OFFVIS ---
Vital Signs 01/07/25 09:59 Weight 157 lb BP 124/75 Blood Pressure Location Rt brachial Position Sitting Pulse 77 Intake Visit Reasons: s/p RIH w/mesh Intake Note: Patient here s/p repair of right inguinal hernia with mesh. Patient c/o: no concerns. Steri strips removed without incident. Taking Ibuprofen as needed. Surgery: 12-25-2024 Learning Operations Specialist Required: No Accompanied by: Spouse Allergies midazolam Allergy (Mild, Verified 01/07/25 09:59) Agitated HPI HPI s/p RIH w/mesh: Details: He is here for postop visit. He underwent repair of a chronically incarcerated right inguinal hernia with mesh last 12/25/2024. He says he is doing well overall. He denies any significant pain. He has no nausea or vomiting. [facility] Medical History Opioid use disorder Anemia Elevated alkaline phosphatase level Elevated ALT measurement Elevated AST (SGOT) Total bilirubin, elevated Low HDL (under 40) Pure hypercholesterolemia, unspecified Hypertriglyceridemia Irreducible right inguinal hernia Colon cancer screening Overweight with body mass index (BMI) of 26 to 26.9 in adult History of pancreatitis Nicotine dependence Substance abuse in remission Right inguinal hernia Establishing care with new doctor, encounter for Surgical History H/O right inguinal hernia repair (12/25/24) Hx of left inguinal hernia repair Family History Father Heart attack Mother Heart attack Social History Housing: House Alcohol intake: current Alcohol intake frequency: holidays/special occasions only Patient Tobacco Use Status: Current everyday Tobacco user Tobacco use type: Cigarette Cigarette Packs Per Day: 1 Cigarettes Per Day: 20.0 service: No Current occupational status: unemployed Cognitive needs: No Hearing needs: No Vision needs: No Review of Systems Const Denies chills and Denies fever(s) Resp Denies cough GI Denies abdominal pain Physical Exam Const General: no acute distress Resp Effort & Inspection: normal respiratory effort GI Other: Right inguinal hernia repair site is well healed, not infected, repair site intact Palpation (GI): Soft to palpation, not firm, nontender and no guarding Assessment & Plan Assessment & Plan (1) Irreducible right inguinal hernia: Code(s): K40.30 - Unilateral inguinal hernia, with obstruction, without gangrene, not specified as recurrent Category: Medical Plan: Status post repair with mesh. He is doing very well. The repair site is intact. Incisions well healed. I advised him to avoid lifting anything more than 20 lb for at least 2 more weeks. He can otherwise follow up on a p.r.n. basis. Coding Level of Care Code Global (82539) Diagnoses Irreducible right inguinal hernia K40.30
[2025-01-07 09:59] VITALS: BP 124/75; PULSE 77
== END 2025-01-07 10:13 | disposition home or self-care (01) ==
LOC: HO.HGS 09:53
PROVIDERS: PCP Physician Assistant Medical; Visit Provider Surgery
DX: K40.30 Unilateral inguinal hernia, with obstruction, without gangrene, not specified as recurrent (principal)
CPT/HCPCS: 99024

== ENCOUNTER 2025-01-09 11:04 | Outpatient (AMB) | payer BC, SELFPAY ==
--- NOTE | 2025-01-09 11:09 | A.OFFVIS_ITS ---
Vital Signs 01/09/25 11:10 Height 5 ft 6 in Weight 163 lb BMI 26.3 BP 120/78 Pulse 78 Pulse Oximetry (%) 98 Intake Visit Reasons: MAT Allergies midazolam Allergy (Mild, Verified 01/09/25 11:12) Agitated HPI Comments Details: A 44-year-old male presents for a follow-up visit related HOMERO in sustained remission with buprenorphine-naloxone 8/2 mg BID. Denies use of opiates, alcohol, and other substances. Continues to smoke cigarettes on a regular basis. Reports currently recovering from a hernia repair and is doing well. Follow-up in 2 months or sooner if needed. [facility] Medical History Opioid use disorder Anemia Elevated alkaline phosphatase level Elevated ALT measurement Elevated AST (SGOT) Total bilirubin, elevated Low HDL (under 40) Pure hypercholesterolemia, unspecified Hypertriglyceridemia Irreducible right inguinal hernia Colon cancer screening Overweight with body mass index (BMI) of 26 to 26.9 in adult History of pancreatitis Nicotine dependence Substance abuse in remission Right inguinal hernia Establishing care with new doctor, encounter for Surgical History H/O right inguinal hernia repair (12/25/24) Hx of left inguinal hernia repair Family History Father Heart attack Mother Heart attack Social History Housing: House Alcohol intake: current Alcohol intake frequency: holidays/special occasions only Patient Tobacco Use Status: Current everyday Tobacco user Tobacco use type: Cigarette Cigarette Packs Per Day: 1 Cigarettes Per Day: 20.0 service: No Current occupational status: unemployed Cognitive needs: No Hearing needs: No Vision needs: No Physical Exam Vital Signs: Last Vital Signs Pulse 78 01/09/25 11:10 BP 120/78 01/09/25 11:10 Pulse Ox 98 01/09/25 11:10 BMI result Body Mass Index 26.3 Assessment & Plan Assessment & Plan (1) Substance abuse in remission: Comment: 11 years from heroin, cocaine, pills Code(s): F19.11 - Other psychoactive substance abuse, in remission Category: Medical Plan The plan of care is to continue with buprenorphine-naloxone 8-2 mg BID, engage in risk reduction activities to decrease frequency and quantity of cigarette smoking. Follow-up in 2 months or sooner if needed. Medications: Refilled buprenorphine-naloxone 8-2 mg (Suboxone) 1 film sublingual BID 60 ea 1RF 30 days Patient Instructions: - Continue with buprenorphine-naloxone as ordered. - Risk reduction activities to reduce cigarette smoking. - Follow up in 2 months or sooner if needed. - Call with questions, concerns, or to report side effects/new onset of symptoms to [facility]. - The patient verbalized understanding and agreed with plan of care. Coding Level of Care Code Est Pt Level 3 (61274) Diagnoses Substance abuse in remission F19.11
[2025-01-09 11:10] VITALS: BP 120/78; PULSE 78; O2SAT 98; BMI 26.3
== END 2025-01-09 11:18 | disposition home or self-care (01) ==
PROVIDERS: PCP Physician Assistant Medical; Visit Provider Clinical Nurse Specialist Psychiatric/Mental Health
DX: F19.11 Other psychoactive substance abuse, in remission (principal)
CPT/HCPCS: 99213

== ENCOUNTER 2025-01-18 10:57 | Outpatient (AMB) | payer BC, SELFPAY ==
[2025-01-18 11:05] VITALS: BP 118/62; PULSE 68; RESP 14; TEMP 36.9; O2SAT 96; BMI 26.8
--- NOTE | 2025-01-18 11:05 | A.OFFPC_ITS ---
Vital Signs 01/18/25 11:05 Height 5 ft 4.17 in Weight 157 lb BMI 26.8 BP 118/62 Blood Pressure Location Rt brachial Position Sitting Respiration 14 Pulse 68 Pulse Source Pulse Oximeter Temp 98.4 F Temp Source Temporal Artery Scan Pulse Oximetry (%) 96 Oxygen Delivery Method Room Air Intake Visit Reasons: 3 month f/u Exhaust Emissions Inspector Required: No Accompanied by: Spouse Allergies midazolam Allergy (Mild, Verified 01/18/25 11:32) Agitated Medication List - Last Reconciled 01/18/25 by Sulma Sargent PA-C atorvastatin 40 mg PO BEDTIME 30 days buprenorphine-naloxone 8-2 mg (Suboxone) 1 film sublingual BID 30 days fenofibrate nanocrystallized 145 mg PO DAILY gemfibrozil 600 mg PO DAILY ibuprofen 600 mg PO Q6H PRN niacin 100 mg PO BEDTIME omega-3 fatty acids 1,000 mg PO DAILY Tobacco use date assessed: 01/18/25 Dental Screening Dental Screen Date: 09/28/24 HPI 3 month f/u HPI Details The patient is a 44-year-old male presenting for follow-up on cholesterol management. The patient has a history of hypertriglyceridemia, which has been persistently high despite previous interventions. He has been advised to modify his diet, reduce alcohol intake, and increase physical activity to manage his triglyceride levels. The patient has made some dietary changes, including eating more salads, but continues to struggle with high triglyceride levels. The patient has a history of chronic pancreatitis, which has been attributed to his alcohol consumption. He has experienced significant pain during previous episodes, which has improved with reduced alcohol intake. The patient also presents with elevated liver enzymes, likely secondary to alcohol use. He has been advised to reduce alcohol consumption to prevent further liver damage. Social History - Alcohol consumption: Patient reports h igh intake, primarily beer, contributing to health issues. - Dietary habits: Patient has started ea ting more salads and reducing fatty foods. [facility] Medical History (Updated 01/18/25 @ 12:40 by Sulma Sargent PA-C) Chronic pancreatitis Opioid use disorder Anemia Elevated alkaline phosphatase level Elevated ALT measurement Elevated AST (SGOT) Total bilirubin, elevated Low HDL (under 40) Pure hypercholesterolemia, unspecified Hypertriglyceridemia Irreducible right inguinal hernia Colon cancer screening Overweight with body mass index (BMI) of 26 to 26.9 in adult History of pancreatitis Nicotine dependence Substance abuse in remission Right inguinal hernia Establishing care with new doctor, encounter for Surgical History H/O right inguinal hernia repair (12/25/24) Hx of left inguinal hernia repair Family History Father Heart attack Mother Heart attack Social History Housing: House Alcohol intake: current Alcohol intake frequency: holidays/special occasions only Patient Tobacco Use Status: Current everyday Tobacco user Tobacco use type: Cigarette Cigarette Packs Per Day: 1 Cigarettes Per Day: 20.0 service: No Current occupational status: unemployed Cognitive needs: No Hearing needs: No Vision needs: No Questionnaire PHQ-9 Over the last 2 weeks, how often have you been bothered by any of the following problems? 1. Little interest or pleasure in doing things: not at all 2. Feeling down, depressed, or hopeless: not at all 3. Trouble falling or staying asleep, or sleeping too much: not at all 4. Feeling tired or having little energy: not at all 5. Poor appetite or overeating: not at all 6. Feeling bad about yourself - or that you are a failure or have let yourself or your family down: not at all 7. Trouble concentrating on things, such as reading the newspaper or watching television: not at all 8. Moving or speaking so slowly that other people could have noticed. Or the opposite - being so fidgety or restless that you have been moving around a lot more than usual: not at all 9. Thoughts that you would be better off or of hurting yourself in some way: not at all Total score: 0 Depression Screening Interpretation: Negative Depression Screening Done: Yes 97453 - PHQ-9 Billing: Yes Source: Developed by Drs. Santana Perea, Safia Cruz, Sarmad Caro and colleagues, with an educational jeanmarie from [employer]. Thrive Questionnaire Date Thrive assessed: 09/28/24 I am a: Patient What is your living situation today?: I have a steady place to live Within the past 12 months, did the food you bought not last and you didn't have the money to get more?: Never true Within the past 12 months, did you worry whether your food would run out before you got money to buy more?: Never true Do you have trouble paying for medicines?: No Do you have trouble getting transportation to medical appointments?: No Do you have trouble paying your heating and electricity bill?: No Do you have trouble taking care of your child, family member or friend?: No Do you have trouble with day-to-day activities such as bathing, preparing meals, shopping, managing finances, etc.?: No Are you currently unemployed and looking for a job?: No Are you interested in more education?: No Please select the resources that you would like help with: None THRIVE Score: 0 AUDIT C Alcohol Use Questionnaire (AUDIT-C) 1. How often do you have a drink containing alcohol?: Monthly or less 2. How many drinks containing alcohol do you have on a typical day when you are drinking?: 1 or 2 3. How often do you have six or more drinks on one occasion?: Never Total Score: 1 Score Reviewed/Action Taken: No LISA-7 AMB Questionnaire LISA-7 Date LISA - 7 assessed: 09/28/24 Feeling nervous, anxious, or on edge: 0 = Not at all Not being able to stop or control worryin = Not at all Worrying too much about different things: 0 = Not at all Trouble relaxin = Not at all Being so restless that it is hard to sit still: 0 = Not at all Becoming easily annoyed or irritable: 0 = Not at all Feeling afraid as if something awful might happen: 0 = Not at all Total LISA-7 score (0-4 normal; 5-9 mild; 10-14 moderate; 15-21 severe): 0 Source: Developed by Drs. Santana Perea, Safia Cruz, Sarmad Caro and colleagues, with an educational jeanmarie from [employer]. LISA-7 Assessment Billing LISA-7 Assessment Tool: LISA-7 Assessment 50040 Review of Systems Const Details: - Gastrointestinal: Denies abdominal pain currently. All systems reviewed & are unremarkable except as noted in HPI and below Physical exam (Primary Care) Vital Signs: Last Vital Signs Temp 98.4 F 01/18/25 11:05 Pulse 68 01/18/25 11:05 Resp 14 01/18/25 11:05 BP 118/62 01/18/25 11:05 Pulse Ox 96 01/18/25 11:05 Oxygen Delivery Method Room Air 01/18/25 11:05 Care Plan Goal for BP management: <140/90 at Goal BMI result Body Mass Index 26.8 BMI Assessment/Plan discussion: High BMI High, discussed plan: lifestyle, weight reduction, dietary, physical activity, alcohol moderation and other Tobacco/Smoking Status: Tobacco use Status Tobacco use date assessed 01/18/25 01/18/25 11:07 Patient Tobacco Use Status Current everyday Tobacco 01/18/25 11:07 Tobacco use type Cigarette 01/18/25 11:07 PHQ-9: PHQ-9 Score PHQ-9: Total score 0 01/18/25 11:07 Depression Screening Interpretation: Negative Thrive Assessment: Date of Thrive Assessment Date Thrive assessed 09/28/24 01/18/25 11:07 Const Other: Appearance: Alert. Oriented X3. No acute distress. Head: Normal external exam. Normocephalic. Atraumatic. Eyes: Pupils are equal, round, and reactive to light. Extraocular movements intact. Conjunctiva and sclera normal. Eyelids normal. Throat: Pharynx normal. Uvula midline. Moist mucous membranes. Neck: Normal inspection. Neck supple. Full range of motion. Cardiovascular: Normal heart rate and rhythm. Respiratory: No respiratory distress. Painless inspiration. Abdomen: Soft and nontender. No distention noted. No organomegaly noted. Back: Full range of motion noted. Skin: Skin warm and dry. Normal skin color. Normal skin turgor. No rashes/lesions/lacerations noted. Extremities: Extremities exhibit normal range of motion. Neuro: Oriented X 3. No motor deficit. No sensory deficit. Reflexes normal. Office Procedures Flu Questionnaire Does the patient have a severe egg allergy?: No Does the patient have severe life threatening allergies?: No Does the patient have a fever or illness today?: No Has the patient ever had Guillain-[place] Syndrome?: No Has the patient ever had any past reaction to a flu shot?: No Immunizations Fluarix [id number] (PF) 45 mcg (15 mcg x 3)/0.5 mL IM syringe Performing Provider: Sulma Sargent PA-C [facility] [place] Documented (not given) by: YOUSIF Bradley on 01/18/25 11:12 Reason Not Given: Patient Refused Results Reviewed Results Reviewed: - Labs: Elevated AST 96, ALT 87, alkaline phosphatase 183. - Labs: Triglycerides reduced from 1660 to 997. Coding Level of Care Code Est Pt Level 4 (96413) Complex EM visit Add On G2211 Diagnoses Hypertriglyceridemia E78.1 Chronic pancreatitis K86.1 Total bilirubin, elevated R17 Elevated ALT measurement R74.01 Elevated AST (SGOT) R74.01 Elevated alkaline phosphatase level R74.8 Additional Codes LISA-7 Assessment Billing - LISA-7 Assessment Tool: LISA-7 Assessment 96432 ([id number]) PHQ-9 - 23869 - PHQ-9 Billing: Yes ([id number]) Assessment & Plan Assessment & Plan (1) Hypertriglyceridemia: Code(s): E78.1 - Pure hyperglyceridemia Category: Medical Plan: The patient will be started on Gemfibrozil and an increased dose of statin to manage hypertriglyceridemia. Additionally, high-dose omega-3 fatty acids and niacin will be added to the regimen. The patient is advised to follow a low-fat diet, limit alcohol intake, and increase physical activity. (2) Chronic pancreatitis: Code(s): K86.1 - Other chronic pancreatitis Category: Medical Plan: The patient is advised to significantly reduce alcohol consumption to prevent exacerbation of chronic pancreatitis. A CT scan of the abdomen is recommended to assess the current status of the pancreas. (3) Total bilirubin, elevated: Code(s): R17 - Unspecified jaundice Category: Medical Plan: The patient will have liver function tests repeated in one month to monitor enzyme levels. Hepatitis screening will be conducted to rule out infectious causes. The patient is advised to reduce alcohol intake to prevent further liver damage. (4) Elevated ALT measurement: Code(s): R74.01 - Elevation of levels of liver transaminase levels Category: Medical Plan: The patient will have liver function tests repeated in one month to monitor enzyme levels. Hepatitis screening will be conducted to rule out infectious causes. The patient is advised to reduce alcohol intake to prevent further liver damage. (5) Elevated AST (SGOT): Code(s): R74.01 - Elevation of levels of liver transaminase levels Category: Medical Plan: The patient will have liver function tests repeated in one month to monitor enzyme levels. Hepatitis screening will be conducted to rule out infectious causes. The patient is advised to reduce alcohol intake to prevent further liver damage. (6) Elevated alkaline phosphatase level: Code(s): R74.8 - Abnormal levels of other serum enzymes Category: Medical Plan: The patient will have liver function tests repeated in one month to monitor enzyme levels. Hepatitis screening will be conducted to rule out infectious causes. The patient is advised to reduce alcohol intake to prevent further liver damage. Plan Plan Patient was informed and verbally consented to the use of an ambient scribe for clinic note documentation during this visit. 1. Hypertriglyceridemia The patient will be started on Gemfibrozil and an increased dose of statin to manage hypertriglyceridemia. Additionally, high-dose omega-3 fatty acids and niacin will be added to the regimen. The patient is advised to follow a low-fat diet, limit alcohol intake, and increase physical activity. 2. Chronic Pancreatitis The patient is advised to significantly reduce alcohol consumption to prevent exacerbation of chronic pancreatitis. A CT scan of the abdomen is recommended to assess the current status of the pancreas. 3. Elevated Liver Enzymes The patient will have liver function tests repeated in one month to monitor enzyme levels. Hepatitis screening will be conducted to rule out infectious causes. The patient is advised to reduce alcohol intake to prevent further liver damage. During the visit, I discussed with the patient the importance of managing his hypertriglyceridemia through medication and lifestyle changes, including diet and exercise. We reviewed the risks associated with chronic pancreatitis and elevated liver enzymes, emphasizing the need to reduce alcohol intake. I recommended a CT scan to evaluate the pancreas and scheduled follow-up tests to monitor liver function and triglyceride levels. Orders: Orders Influenza [id number] Immunization Today Z23 - Encounter for immunization Hepatitis A,B,C Profile Today Z00.00 - Encounter for general adult medical examination without abnormal findings Lipid Panel Today Z00.00 - Encounter for general adult medical examination without abnormal findings Liver Panel Today Z00.00 - Encounter for general adult medical examination without abnormal findings Lactate Dehydrogenase Today E78.00 - Pure hypercholesterolemia, unspecified, E78.1 - Pure hyperglyceridemia, E78.6 - Lipoprotein deficiency, R17 - Unspecified jaundice, R74.01 - Elevation of levels of liver transaminase levels, Z87.19 - Personal history of other diseases of the digestive system Amylase Today E78.00 - Pure hypercholesterolemia, unspecified, E78.1 - Pure hyperglyceridemia, E78.6 - Lipoprotein deficiency, Z87.19 - Personal history of other diseases of the digestive system Comprehensive [place]. Panel Fast Today Z00.00 - Encounter for general adult medical examination without abnormal findings CT abdomen pelvis w IV con Today E78.00 - Pure hypercholesterolemia, unspecified, E78.1 - Pure hyperglyceridemia, E78.6 - Lipoprotein deficiency, R17 - Unspecified jaundice, R74.01 - Elevation of levels of liver transaminase levels, Z87.19 - Personal history of other diseases of the digestive system Lipase Today E78.00 - Pure hypercholesterolemia, unspecified, E78.1 - Pure hyperglyceridemia, E78.6 - Lipoprotein deficiency, R17 - Unspecified jaundice, R74.01 - Elevation of levels of liver transaminase levels, Z87.19 - Personal history of other diseases of the digestive system Medications: New gemfibrozil 600 mg PO DAILY 90 tabs 3RF atorvastatin 40 mg PO BEDTIME 30 tabs 0RF 30 days omega-3 fatty acids 1,000 mg PO DAILY 90 caps 3RF E66.3 - Overweight, E78.00 - Pure hypercholesterolemia, unspecified, E78.1 - Pure hyperglyceridemia, E78.6 - Lipoprotein deficiency, Z68.26 - Body mass index [BMI] 26.0-26.9, adult, Z87.19 - Personal history of other diseases of the digestive system niacin 100 mg PO BEDTIME 90 tabs 3RF Patient Instructions: - Take prescribed medications as directed, including Gemfibrozil, statin, omega- 3 fatty acids, and niacin. - Follow a low-fat diet and limit alcohol intake. - Increase physical activity as tolerated. - Return for follow-up in one month for repeat liver function tests and triglyceride levels. - Report any new or worsening symptoms immediately.
== END 2025-01-18 11:31 | disposition home or self-care (01) ==
LOC: HO.HMCSH 10:57
PROVIDERS: PCP Physician Assistant Medical; Visit Provider Physician Assistant Medical
DX: E78.1 Pure hyperglyceridemia (principal); K86.1 Other chronic pancreatitis; R17 Unspecified jaundice; R74.01 Elevation of levels of liver transaminase levels; R74.8 Abnormal levels of other serum enzymes; Z23 Encounter for immunization

== ENCOUNTER → 2025-01-18 10:57 | Outpatient (BNVA) | payer BC, SELFPAY | PROVIDERS: PCP Physician Assistant Medical; Visit Provider Physician Assistant Medical | DX: E78.1 Pure hyperglyceridemia (principal); K86.1 Other chronic pancreatitis; R17 Unspecified jaundice; R74.01 Elevation of levels of liver transaminase levels; R74.8 Abnormal levels of other serum enzymes; Z28.21 Immunization not carried out because of patient refusal | CPT/HCPCS: 90471; 96127 ==

== ENCOUNTER 2025-03-12 11:02 | Outpatient (AMB) | payer BC, SELFPAY ==
[2025-03-12 11:17] VITALS: BP 118/76; PULSE 78; O2SAT 98
--- NOTE | 2025-03-12 11:17 | A.OFFVIS_ITS ---
Vital Signs 03/12/25 11:17 BP 118/76 Pulse 78 Pulse Oximetry (%) 98 Intake Visit Reasons: MAT Allergies midazolam Allergy (Mild, Verified 03/12/25 11:18) Agitated HPI Comments Details: A 44-year-old male presents for a follow-up visit r/t HOMERO in sustained remission with buprenorphine-naloxone 8-2 mg BID. Denies use of opiates, alcohol other substances. Reports actively working on decreasing frequency quantity of cigarette smoking. Engages in conversation re: feeling well post hernia repair surgery. [facility] Medical History Chronic pancreatitis Opioid use disorder Anemia Elevated alkaline phosphatase level Elevated ALT measurement Elevated AST (SGOT) Total bilirubin, elevated Low HDL (under 40) Pure hypercholesterolemia, unspecified Hypertriglyceridemia Irreducible right inguinal hernia Colon cancer screening Overweight with body mass index (BMI) of 26 to 26.9 in adult History of pancreatitis Nicotine dependence Substance abuse in remission Right inguinal hernia Establishing care with new doctor, encounter for Surgical History H/O right inguinal hernia repair (12/25/24) Hx of left inguinal hernia repair Family History Father Heart attack Mother Heart attack Social History Housing: House Alcohol intake: current Alcohol intake frequency: holidays/special occasions only Patient Tobacco Use Status: Current everyday Tobacco user Tobacco use type: Cigarette Cigarette Packs Per Day: 1 Cigarettes Per Day: 20.0 service: No Current occupational status: unemployed Cognitive needs: No Hearing needs: No Vision needs: No Review of Systems Const All systems reviewed & are unremarkable except as noted in HPI and below Physical Exam Vital Signs: Last Vital Signs Pulse 78 03/12/25 11:17 BP 118/76 03/12/25 11:17 Pulse Ox 98 03/12/25 11:17 Const General: cooperative Assessment & Plan Assessment & Plan (1) Opioid use disorder in remission: Code(s): F11.91 - Opioid use, unspecified, in remission Category: Medical Plan The plan of care is to continue with buprenorphine-naloxone 8-2 mg BID. Utilize risk reduction activities to minimize cigarette use and follow-up in 2 months or sooner if needed. Patient Instructions: - Continue with buprenorphine-naloxone as prescribed. - Utilize risk reduction activities to minimize cigarette use. - Follow-up in 2 months or sooner if needed. - Call with questions, concerns, or to report side effects/new onset of symptoms to [facility]. - The patient verbalized understanding and agreed with plan of care. Coding Level of Care Code Est Pt Level 3 (46709) Diagnoses Opioid use disorder in remission F11.91
== END 2025-03-12 11:40 | disposition home or self-care (01) ==
LOC: HO.HCC 11:02
PROVIDERS: PCP Physician Assistant Medical; Visit Provider Clinical Nurse Specialist Psychiatric/Mental Health
DX: F11.91 Opioid use, unspecified, in remission (principal)
CPT/HCPCS: 99213